=== PATIENT | female | born 1995 | race Caucasian/White ===

== ENCOUNTER 2020-03-16 10:05 | Emergency (ER) | payer SELFPAY ==
[2020-03-16] MEDS ORDERED: NORMAL SALINE 1000 ML 1,000 ML IV ONE (10:27)
[2020-03-16] MEDS ORDERED: ONDANSETRON HCL INJ/PF 4 MG/2 ML SDV IV ONE (10:45)
--- NOTE | 2020-03-16 10:51 | ER Document Report ---
ED GI/ - General Chief Complaint: Flu Symptoms Stated Complaint: NAUSEA VOMIING DIARRHEA Time Seen by Provider: 03/16/20 10:29 Notes: CHIEF COMPLAINT: Nausea vomiting diarrhea abdominal pain fever HPI: 25-year-old female presenting for nausea vomiting with abdominal pain on the right side over the last 3 to 4 days. Has had multiple episodes of diarrhea. Had fever up to 102 3 days ago. ROS: See HPI - all other systems were reviewed and are otherwise negative Constitutional: + fever Eyes: no drainage, no blurred vision ENT: no runny nose, no sore throat Cardiovascular: no chest pain Resp: no SOB, no cough GI: + vomiting, + diarrhea, + abdominal pain : no dysuria Integumentary: no rash Allergy: no hives Musculoskeletal: no extremity pain or swelling Neurological: no numbness/tingling, no weakness MEDICATIONS: I agree with the patient medications as charted by the RN. ALLERGIES: I agree with the allergies as charted by the RN. PAST MEDICAL HISTORY/PAST SURGICAL HISTORY: Reviewed and agree as charted by RN. SOCIAL HISTORY: Reviewed and agree as charted by RN. FAMILY HISTORY: No significant familial comorbid conditions directly related to patient complaint EXAM: Reviewed vital signs as charted by RN. CONSTITUTIONAL: Alert and oriented and responds appropriately to questions. Well-appearing; well-nourished HEAD: Normocephalic; atraumatic EYES: PERRL; Conjunctivae clear, sclerae non-icteric ENT: normal nose; no rhinorrhea; moist mucous membranes; pharynx without lesions noted, no uvula edema or deviation, no tonsillar hypertrophy, phonation normal NECK: Supple without meningismus; non-tender; no cervical lymphadenopathy, no masses CARD: RRR; no murmurs, no clicks, no rubs, no gallops; symmetric distal pulses RESP: Normal chest excursion without splinting or tachypnea; breath sounds clear and equal bilaterally; no wheezes, no rhonchi, no rales, pulse oximetry 99% on room air not hypoxic ABD/GI: Normal bowel sounds; non-distended; soft, there is tenderness in the right upper quadrant right lower quadrant on palpation, no rebound, no guarding; no palpable organomegaly or masses. BACK: The back appears normal and is non-tender to palpation, there is no CVA tenderness EXT: Normal ROM in all joints; non-tender to palpation; no cyanosis, no effusions, no edema SKIN: Normal color for age and race; warm; dry; good turgor; no acute lesions noted NEURO: Moves all extremities equally; Motor and sensory function intact PSYCH: The patient's mood and manner are appropriate. Grooming and personal h ygiene are appropriate. MDM: 25-year-old female presenting with fever nausea vomiting abdominal pain with pain in the right abdomen. Will obtain screening labs, treat dehydration with hydration and antiemetics, obtain CT imaging given right-sided abdominal pain to evaluate for possible appendicitis The patient was evaluated during the global COVID-19 pandemic and that diagnosis was suspected/considered upon their initial presentation. Their evaluation, treatment and testing was consistent with current guidelines for patients who present with complaints or symptoms that may be related to COVID-19 - Related Data Allergies/Adverse Reactions: Penicillins Allergy (Mild, Verified 03/16/20 10:31) Home Medications: tri-sprintec Past Medical History - Social History Smoking Status: Never Smoker Frequency of alcohol use: Rare Drug Abuse: None Family History: Reviewed & Not Pertinent Patient has homicidal ideation: No Course - Re-evaluation Re-evalutation: 03/16/20 14:23 CT of the abdomen shows evidence of lymphadenopathy suggesting mesenteric adenitis. This does fit with the patient's profile today. I discussed this at length with her. We also discussed the possibility of lymphoma and need for recheck in 2 months for reevaluation with PCP to ensure lymphadenopathy has resolved. Patient may go home at this time she is tolerating oral fluids, will prescribe Zofran, strict return precautions she is not concerned about Covid and declines Covid testing - Laboratory Results Result Diagrams: 03/16/20 10:50 03/16/20 10:50 Laboratory Results Interpreted: 03/16/20 03/16/20 10:50 12:30 WBC 3.1 L Seg Neuts % (Manual) 37 L Band Neutrophils % 1 L Monocytes % (Manual) 18 H Abs Neuts (Manual) 1.2 L Urine Protein 100 H Urine Ketones 80 H Ur Leukocyte Esterase TRACE H Critical Laboratory Results Reviewed: No Critical Results - Radiology Results Critical Radiology Results Reviewed: No Critical Results Discharge - Discharge Clinical Impression: Nausea vomiting and diarrhea, Mesenteric adenitis, Abdominal pain, right lower quadrant Condition: Stable Disposition: HOME, SELF-CARE Additional Instructions: Take Zofran for nausea vomiting. Hydrate well at home. It is important for you to follow-up with your primary care provider for reevaluation of the swollen lymph nodes in the abdomen to ensure that they are not present in 1 to 2 months as discussed. Return for inability to keep fluids down. If you develop fever take Tylenol or ibuprofen Prescriptions: Ondansetron [Zofran Odt 4 mg Tablet] 1 - 2 tab PO Q4H PRN #15 tab.rapdis PRN Reason: For Nausea/Vomiting Referrals: HELADIO FARIAS MD [[facility] STAFF] - Follow up as needed
[2020-03-16 11:14] LABS: HEMATOCRIT 41.6 % (36.0-47.0); HEMOGLOBIN 14.5 g/dL (12.0-15.5); MEAN CORPUSCULAR HEMOGLOBIN 30.2 pg (27.0-33.4); MEAN CORPUSCULAR HGB CONC 34.8 g/dL (32.0-36.0); MEAN CORPUSCULAR VOLUME 87 fl (80-97); PLATELET COUNT 163 10^3/uL (150-450); RED BLOOD COUNT 4.79 10^6/uL (3.72-5.28); RED CELL DISTRIBUTION WIDTH 13.2 % (11.5-14.0); WHITE BLOOD COUNT 3.1 10^3/uL (4.0-10.5)
[2020-03-16 11:38] LABS: ALBUMIN 4.3 g/dL (3.5-5.0); ALKALINE PHOSPHATASE 66 U/L (38-126); ANION GAP 12 (5-19); ASPARTATE AMINO TRANSFERASE 36 U/L (14-36); BILIRUBIN,DIRECT 0.2 mg/dL (0.0-0.4); BILIRUBIN,TOTAL 0.5 mg/dL (0.2-1.3); BLOOD UREA NITROGEN 14 mg/dL (7-20); CALCIUM 9.6 mg/dL (8.4-10.2); CARBON DIOXIDE 26 mmol/L (22-30); CHLORIDE 101 mmol/L (98-107); GLUCOSE 91 mg/dL (75-110); POTASSIUM 3.9 mmol/L (3.6-5.0); TOTAL PROTEIN 7.6 g/dL (6.3-8.2)
[2020-03-16 12:08] LABS: ABSOLUTE LYMPHOCYTES# (MANUAL) 1.2 10^3/uL (0.5-4.7); ABSOLUTE MONOCYTES # (MANUAL) 0.6 10^3/uL (0.1-1.4); BAND NEUTROPHILS % (MANUAL) 1 % (3-5); BASOPHILS % (MANUAL) 2 % (0-2); EOSINOPHILS % (MANUAL) 3 % (0-6); LYMPHOCYTES % (MANUAL) 37 % (13-45); MONOCYTES % (MANUAL) 18 % (3-13); PLATELET COMMENT ADEQUATE; PLATELET GIANT PRESENT; RBC MORPHOLOGY COMMENT NORMO-CYTIC/CHROMIC; SEGMENTED NEUTROPHILS % (MAN) 37 % (42-78); TOTAL CELLS COUNTED 100
[2020-03-16 12:52] LABS: APPEARANCE,URINE SLIGHTLY-CLOUDY; BILIRUBIN,URINE NEGATIVE (NEGATIVE); COLOR,URINE YELLOW; GLUCOSE, URINE NEGATIVE (NEGATIVE); KETONES,URINE 80 mg/dL (NEGATIVE); LEUKOCYTE ESTERASE,URINE TRACE (NEGATIVE); NITRITE,URINE NEGATIVE (NEGATIVE); PROTEIN,URINE 100 mg/dL (NEGATIVE); URINE SPECIFIC GRAVITY 1.027; UROBILINOGEN,URINE NEGATIVE mg/dL (<2.0)
--- NOTE | 2020-03-16 14:00 | RADIOLOGY REPORT (SQ) ---
EXAM DESCRIPTION: CT ABD/PELVIS WITH IV ORAL IMAGES COMPLETED DATE/TIME: 03/16/2020 1:39 pm REASON FOR STUDY: right abd pain COMPARISON: None. TECHNIQUE: CT scan of the abdomen and pelvis performed using helical scanning technique with dynamic intravenous contrast injection. No oral contrast. Images reviewed with lung, soft tissue, and bone windows. Reconstructed coronal and sagittal MPR images reviewed. Delayed images for evaluation of the urinary system also acquired. All images stored on PACS. All CT scanners at this facility use dose modulation, iterative reconstruction, and/or weight based d osing when appropriate to reduce radiation dose to as low as reasonably achievable (ALARA). [facility]: Dose Right [facility]: CareDose [facility]: Dose Right [facility]: Teradose 4D [facility]: [place] CONTRAST TYPE AND DOSE: contrast/concentration: Isovue 350.00 mmol/ml; Total Contrast Delivered: 67. 0 ml; Total Saline Delivered: 57.7 ml RENAL FUNCTION: BUN 14 creatinine 0.62. RADIATION DOSE: CT Rad equipment meets quality standard of care and radiation dose reduction techniq ues were employed. CTDIvol: 5.1 - 6.2 mGy. DLP: 622 mGy-cm.. LIMITATIONS: None. FINDINGS: LOWER CHEST: No significant findings. No nodules or infiltrates. LIVER: Normal size. No masses. No dilated ducts. SPLEEN: Normal size. No focal lesions. PANCREAS: No masses. No significant calcifications. No adjacent inflammation or peripancreatic fluid collections. Pancreatic duct not dilated. GALLBLADDER: No identified stones by CT criteria. No inflammatory changes to suggest cholecystitis. ADRENAL GLANDS: No significant masses or asymmetry. RIGHT KIDNEY AND URETER: No solid masses. No significant calcifications. No hydronephrosis or hyd roureter. LEFT KIDNEY AND URETER: No solid masses. No significant calcifications. No hydronephrosis or hydr oureter. AORTA AND VESSELS: No aneurysm. No dissection. Renal arteries, SMA, celiac without stenosis. RETROPERITONEUM: No retroperitoneal adenopathy, hemorrhage or masses. BOWEL AND PERITONEAL CAVITY: There are numerous prominent lymph nodes in the root of the mesentery, m easuring approximately 1 cm or slightly larger. No masses or inflammatory changes in the bowel. No f ree fluid or peritoneal masses. APPENDIX: Not visualized. PELVIS: No mass. No free fluid. Normal bladder. ABDOMINAL WALL: No masses. No hernias. BONES: No significant or acute findings. OTHER: No other significant finding. IMPRESSION: 1. MESENTERIC ADENOPATHY/ADENITIS. NONSPECIFIC. THIS COULD BE DUE TO AN ACUTE INFLAMMATORY PROCESS SUCH GASTROENTERITIS. OTHER CAUSES OF LYMPH NODE ENLARGEMENT INCLUDING LYMPHOMA ARE ALSO POSSIBLE . FOLLOW-UP CT IN 1 OR 2 MONTHS SHOULD BE DONE TO DETERMINE IF LYMPH NODE ENLARGEMENT PERSISTS OR RE SOLVES. 2. NO OTHER SIGNIFICANT OR ACUTE FINDINGS IN THE ABDOMEN OR PELVIS ON CT SCAN WITH IV CONTRAST. TECHNICAL DOCUMENTATION: JOB ID: [id number] Quality ID # [id number]: Final reports with documentation of one or more dose reduction techniques (e.g., Au tomated exposure control, adjustment of the mA and/or kV according to patient size, use of iterative reconstruction technique) 2010 [employer]- All Rights Reserved Reading location - IP/workstation name: [email or web address]
[2020-03-16 14:56] VITALS: BP 128/84
== END 2020-03-16 14:54 | disposition home or self-care (01) ==
LOC: ER 10:05
DX: I88.0 Nonspecific mesenteric lymphadenitis (principal); R11.2 Nausea with vomiting, unspecified; R19.7 Diarrhea, unspecified; R10.31 Right lower quadrant pain; R10.811 Right upper quadrant abdominal tenderness; R10.813 Right lower quadrant abdominal tenderness; Z79.3 Long term (current) use of hormonal contraceptives; Z88.0 Allergy status to penicillin; Z20.822 Contact with and (suspected) exposure to COVID-19
CPT/HCPCS: 99285; 96361; 96374; 36415; 87086; 83690; 84703; 85025; 80053; 81001; 74177; J2405; J7030